=== PATIENT | male | born 1945 | race Caucasian/White ===

== ENCOUNTER 2024-02-07 10:33 | Emergency (ER) | payer MEDICARE, OTHER, SELFPAY ==
[2024-02-07] VITALS (13 sets, daily range): BP systolic 78–149; BP diastolic 53–105; PULSE 66–90; RESP 12–20; TEMP 36.5–36.6; O2SAT 96–100
--- NOTE | ~2024-02-07 | CT_ITS ---
EXAMINATION: CT brain wo con DATE: 02/07/2024 12:00 INDICATION: Altered mental status. TECHNIQUE: Computed tomography (CT) of the head was performed without intravenous contrast. The mA wa s adjusted according to patient size. Iterative reconstruction technique was employed. The dose-lengt h product was 605.33 mGy-cm. COMPARISON: None FINDINGS: There are scattered areas of low attenuation in the cerebral white matter. There is no intr acranial hemorrhage, acute infarction, or abnormal intracranial mass lesion. The ventricles are shruthi l in size. The orbits are normal. There is mild mucosal thickening in the paranasal sinuses. The mast oid air cells are normal. There are peripherally calcified masses in the scalp, likely benign. IMPRESSION: 1. Extensive nonspecific cerebral white matter disease, which likely represents chronic small vessel ischemic disease. Reviewed, dictated and finalized at location A. ER SPLITTER MACHINE OPERATOR
--- NOTE | 2024-02-07 10:41 | ECG_ITS ---
Test Date: 2024-02-07 10:38:18 Measurements Intervals [place] Rate: 76 P: 101 MT: 357 QRS: 39 QRSD: 82 T: -7 QT: 394 QTc: 444 Interpretive Statements ELECTRONIC ATRIAL PACEMAKER NONSPECIFIC ST & T-WAVE ABNORMALITY ABNORMAL RHYTHM ECG No previous ECG available for comparison Electronically Signed On 02-07-2024 15:04:32 TUBULAR RIVETER by Se Mccann M.D.
[2024-02-07 10:44] LABS: Glucose Point of Care 88 mg/dl (65-105)
[2024-02-07] MEDS: SODIUM CHLORIDE 0.9% IV 1,000 ML 999 ML (10:48)
[2024-02-07 11:00] LABS: Basophils Percent Auto 0.6 % (0.2-1.2); Eosinophils Percent Auto 0.6 % (0-4.4); Hematocrit 35.3 % (42.0-52.0); Hemoglobin 11.8 g/dL (14.0-18.0); Immature Granulocyte Absolute 0.02 K/mm3 (0.00-0.031); Immature Granulocyte Percent A 0.3 % (0-0.5); Lymphocytes Absolute Auto 1.19 K/mm3 (0.9-3.2); Mean Corpuscular HGB Conc 33.4 g/dl (32-36); Mean Corpuscular Hemoglobin 32.9 pg (26-34); Mean Corpuscular Volume 98.3 fl (80-100); Mean Platelet Volume 10.5 fl (7.4-10.4); Monocytes Absolute Auto 0.3 K/mm3 (0.1-0.6); Monocytes Percent Auto 4.7 % (2.6-8.5); Neutrophils Percent Auto 75.8 % (45.5-73.1); Platelet Count Result 187 k/mm3 (150-375); Red Blood Count 3.59 M/mm3 (4.6-6.20); Red Cell Distribution Width 12.7 % (11.5-14.5); White Blood Count 6.6 K/mm3 (4.5-10.0)
[2024-02-07 11:11] LABS: INR 1.4
[2024-02-07 11:12] LABS: Partial Thromboplastin Time 33.3 Seconds (22.3-36.8)
[2024-02-07 11:14] LABS: Alanine Aminotransferase 7 U/L (6-50); Albumin Level 3.7 g/dL (3.5-5.1); Alkaline Phosphatase 69 U/L (38-126); Anion Gap 4 mmol/L (4-12); Aspartate Amino Transferase 23 U/L (17-59); Bilirubin,Total 0.8 mg/dL (0.2-1.3); Blood Urea Nitrogen 24 mg/dL (9-20); Calcium 8.5 mg/dL (8.4-10.2); Carbon Dioxide 26 mmol/L (22-30); Chloride 110 mmol/L (98-107); Estimated CRCL calculation 40 ml/min; Estimated Glomerular Filt Rate > 60; Glucose 83 mg/dL (65-110); Potassium 3.5 mmol/L (3.4-5.0); Sodium 140 mmol/L (137-145)
[2024-02-07] MEDS: LACTATED RINGERS 1,000 ML 999 ML IV CONT (11:32)
--- NOTE | 2024-02-07 11:44 | ED.AMS ---
HPI - Altered Mental Status General Chief Complaint: Altered Mental Status Stated Complaint: altered LOC Time Seen by Provider: 02/07/24 11:13 History of Present Illness HPI narrative: 78-year-old male with past medical history including Parkinson's dementia, mild cognitive impairment, hypertension, atrial fibrillation, coronary disease with stents, GERD, malnutrition. He lives at a memory care facility at this time, but does not have 22/09 nursing or support. Patient is accompanied by his career technology teacher who provides collateral formation. Patient is awake alert to his normal baseline which is x2. He is slow to respond but acting appropriate according to his caregiver. He presents today via EMS for concerns of an episode of altered mental status. Patient had a brief episode of unresponsiveness but presently is at his baseline. No associated trauma or injury. No seizure activity reported to the EMS staff on arrival to the facility. Patient denies any complaints at this time such as headache, vision changes, nausea, vomiting,, back pain, fever, chills, urinary issues. He is slightly hypotensive on arrival but no tachycardia, fever or hypoxia. He is DNI/ DNR, comfort care measures only according to the paperwork provided by care provider. Related Data Allergies Allergy/AdvReac Type Severity Reaction Status Date / Time No Known Allergies Allergy Verified 02/07/24 10:47 Review of Systems Review of Systems: as reviewed above in HPI Exam Narrative: GENERAL: [Well-appearing, well-nourished, and in no acute distress.] HEAD: normocephalic, several lipoma or evidence but no hematoma formation. EYES: [PERRLA and EOMI.] ENT: Nares clear, no rhinorrhea or epistaxis. Mucous membranes dry NECK: Supple. CHEST: [Clear to auscultation. No respiratory distress.] HEART: [Regular rate and rhythm]. No murmur heard. [Normal peripheral pulses.] ABDOMEN: [Soft, nondistended], [nontender], [No rigidity or guarding] EXTREMITIES: Normal range of motion. [ 1+ ankle edema.] SKIN: Warm, dry, no rash. NEURO: [No focal deficits], moves all extremities symmetrically, no evidence ataxia, alert oriented x2 which is his baseline. PSYCH: [Normal mood and affect.] Course Vital Signs Vital signs: Vital Signs Temperature 36.6 C 02/07/24 10:34 Pulse Rate 66 02/07/24 10:34 Respiratory Rate 20 02/07/24 10:34 Blood Pressure 78/53 L 02/07/24 10:34 Pulse Oximetry 99 02/07/24 10:34 Oxygen Delivery Room Air 02/07/24 10:34 Temperature 36.6 C 02/07/24 10:34 Pulse Rate 68 02/07/24 12:47 Respiratory Rate 16 02/07/24 12:47 Blood Pressure 137/105 H 02/07/24 12:46 Pulse Oximetry 100 02/07/24 12:47 Oxygen Delivery Room Air 02/07/24 10:50 MDM - Altered Mental Status MDM Narrative Medical decision making narrative: 78-year-old male with a past medical history of Parkinson's, mild cognitive impairment, hypertension, atrial fibrillation on Eliquis, coronary disease with stents, GERD, malnutrition. He is DNI/ DNI and comfort measures only. Presents for an episode of unresponsiveness witnessed at his memory care facility. He is accompanied by his career technology teacher who provides the majority of the collateral formation. Patient has been acting appropriately since this incident and was brief. The career technology teacher informed me that he has had similar episodes like this almost once monthly and has been seen by other physicians at different facilities for this. Does have a pacemaker and they initially attributed to a pacemaker potentially malfunctioning. ppap coordinator states he is presently being placed into a skilled facility with higher level of nursing staff/LPNs in the near future and awaiting a bed available and coordination with the son. His son is out of state and is power of attorney law clerk. Son is not present at bedside. Patient himself appears at his baseline according to the care provider. He has no focal deficits, is awake alert, and able to answer questions albeit slowly which is also his baseline. Denies any pain or falls. Given that he is on Eliquis and has significant comorbidities a workup was ordered including a CT head, laboratory assessment, chest x-ray, EKG. He was given fluid bolus here for his hypotension with resolution likely indicating potential dehydration. patient was re-evaluated frequently and had complete resolution of his blood pressure. Blood pressure now 137/105. patient remained asymptomatic while here in the emergency department and workup completed. Workup revealed no leukocytosis or significant anemia. Platelets within normal limits. Coagulation studies show a mildly prolonged PT consistent with his anticoagulation. Electrolyte panel within normal limits but does have an elevated BUN but normal creatinine. Indicative of prerenal azotemia secondary to intravascular volume depletion and dehydration. Normal electrolytes otherwise. Normal glucose, normal hepatic function panel. Negative troponin, albumin within normal limits. Slightly low total protein could be contributed to potential malnutrition. Urinalysis reveals no signs of urinary tract infection. At CT was independently reviewed by myself and also interpreted by Radiology. No acute intracranial process, extensive chronic small vessel disease consistent with his known Parkinson's. EKG shows pacemaker rhythm without any ST segment elevations, depressions or concerns for ischemia. Occasional ectopy is seen but also noted from previous cardiology note that was provided to me by his career technology teacher. Patient was re-evaluated and still asymptomatic here, with improvement his blood pressure after fluids and lack of any concerning findings on his workup I believe he can be safely discharged back to his care facility presently given that he already has plans for placement with his career technology teacher. Patient would benefit from having more available support at his facility including potential 24/7 nursing or TABLE OPERATOR availability. Care coordinators aware of this and actively working on placement in conjunction with patient's son. They felt comfortable taking the patient back to his facility at this time. Patient is safe and stable for discharge at this time. Medical Records Attestation: I reviewed the patient's medical records. Lab Data Attestation: I reviewed the patient's lab results. 02/07/24 10:49 02/07/24 10:49 Labs: Lab Results 02/07/24 02/07/24 02/07/24 Range/Units 10:41 10:49 12:40 WBC 6.6 (4.5-10.0) K/mm3 RBC 3.59 L (4.6-6.20) M/mm3 Hgb 11.8 L (14.0-18.0) g/dL Hct 35.3 L (42.0-52.0) % MCV 98.3 (80-100) fl MCH 32.9 (26-34) pg MCHC 33.4 (32-36) g/dl RDW 12.7 (11.5-14.5) % Plt Count 187 (150-375) k/mm3 MPV 10.5 H (7.4-10.4) fl Immature Gran % (Auto) 0.3 (0-0.5) % Neut % (Auto) 75.8 H (45.5-73.1) % Lymph % (Auto) 18.0 L (18.3-44.2) % [place] % (Auto) 4.7 (2.6-8.5) % Eos % (Auto) 0.6 (0-4.4) % Baso % (Auto) 0.6 (0.2-1.2) % Lymph # (Auto) 1.19 (0.9-3.2) K/mm3 [place] # (Auto) 0.3 (0.1-0.6) K/mm3 Eos # (Auto) 0.0 (0-0.3) K/mm3 Baso # (Auto) 0.0 (0.0-0.1) K/mm3 Abs Immat Gran (auto) 0.02 (0.00-0.031) K/mm3 Absolute Neuts (auto) 5.0 (1.3-6.7) K/mm3 Absolute Nucleated RBC 0.000 (0.0-0.012) K/mm3 Nucleated RBC % 0.0 (0.0-0.2) % PT 18.0 H (11.1-14.7) Seconds INR 1.4 APTT 33.3 (22.3-36.8) Seconds Sodium 140 (137-145) mmol/L Potassium 3.5 (3.4-5.0) mmol/L Chloride 110 H (98-107) mmol/L Carbon Dioxide 26 (22-30) mmol/L Anion Gap 4 (4-12) mmol/L BUN 24 H (9-20) mg/dL Creatinine 1.10 (0.7-1.3) mg/dL Estim Creat Clear Calc 40 ml/min Estimated GFR > 60 (59 - ) Glucose 83 (65-110) mg/dL POC Capillary Glucose 88 (65-105) mg/dl Calcium 8.5 (8.4-10.2) mg/dL Total Bilirubin 0.8 (0.2-1.3) mg/dL AST 23 (17-59) U/L ALT 7 (6-50) U/L Alkaline Phosphatase 69 (38-126) U/L Troponin I < 0.012 (0.000-0.034) ng/mL Total Protein 6.0 L (6.3-8.2) g/dL Albumin 3.7 (3.5-5.1) g/dL Urine Color Yellow (Yellow) Urine Appearance Cloudy H (Clear) Urine pH 6.5 (5.0-9.0) Ur Specific [place] 1.021 (1.001-1.035) Urine Protein Trace (Negative) mg/dL Urine Glucose (UA) Negative (Negative) mg/dL Urine Ketones Trace H (Negative) mg/dL Ur Blood (Man) Negative (Negative) Urine Nitrate Negative (Negative) Urine Bilirubin Negative (Negative) Urine Urobilinogen 1.0 (<2.0) mg/dL Leukocyte Esterase Rfl Trace H (Negative) SHAYY/UL Urine RBC 0-2 (0-2) /hpf Urine WBC 0-5 (0-3) /hpf Ur Squamous Epith Cells None seen (Few) /hpf Calcium Oxalate Crystal Present (None) /hpf Urine Bacteria None seen /hpf Urine Casts 3-5 Imaging Data Attestation: I personally reviewed and interpreted this imaging study as follows: My impression: Impressions Head CT 02/07/24 12:03 IMPRESSION: 1. Extensive nonspecific cerebral white matter disease, which likely represents chronic small vessel ischemic disease. Discharge Plan Discharge Clinical Impression: Acute dehydration Patient Disposition: Home, Self-Care Condition: Stable Instructions: Antibiotic Form Additional Instructions: Follow-up with your primary care provider outpatient. Continue working on placement to a facility that has higher level of care including available nursing/TABLE OPERATOR. patient would benefit from being in a more focused care facility rather than assisted living center. You can always return to the ER with any new or worsening concerns or recurrence of symptoms. Follow-up/Referrals: PHYSICIAN NOT ON STAFF,NONSTAFF [Primary Care Provider] - Time of Disposition: 14:03
[2024-02-07 11:52] LABS: Troponin I < 0.012 ng/mL (0.000-0.034)
[2024-02-07 13:03] LABS: Add Urine Microscopic? YES; Appearance Urine Cloudy (Clear); Bacteria Urine None Seen /hpf; Bilirubin Urine Negative (Negative); Blood Urine Negative (Negative); Calcium Oxalate Crystals Urine Present /hpf; Color Urine Yellow (Yellow); Glucose Urine UA Negative (Negative); Ketones Urine Trace mg/dL (Negative); Leukocyte Esterase Ur Trace LEU/UL (Negative); Nitrate Urine Negative (Negative); Protein Urine Trace mg/dL (Negative); RBC Urine 0-2 /hpf (0-2); Specific Grav Ur 1.021 (1.001-1.035); Squamous Epithelial Cell Urine None Seen /hpf (Few); WBC Urine 0-5 /hpf (0-3); pH Urine 6.5 (5.0-9.0)
== END 2024-02-07 14:48 | disposition home or self-care (01) ==
PROVIDERS: Emergency Medicine; Emergency Provider Student in an Organized Health Care Education/Training Program
DX: E86.0 Dehydration (principal); R90.82 White matter disease, unspecified; G20.A1 Parkinson's disease without dyskinesia, without mention of fluctuations; F02.80 Dementia in other diseases classified elsewhere, unspecified severity, without behavioral disturbance, psychotic disturbance, mood disturbance, and anxiety; I10 Essential (primary) hypertension; I48.91 Unspecified atrial fibrillation; I25.10 Atherosclerotic heart disease of native coronary artery without angina pectoris; K21.9 Gastro-esophageal reflux disease without esophagitis; Z98.61 Coronary angioplasty status
CPT/HCPCS: 36415; 70450; 80053; 81001; 82948; 84484; 85025; 85610; 85730; 93005; 96360; 96361; 99284; J7030; J7120